=== PATIENT | male | born 1960 | race Caucasian/White ===

== ENCOUNTER 2021-05-26 13:40 | Emergency (ER) | payer MEDICAID ==
[2021-05-26] MEDS: Ondansetron 4 MG Tab.DIS PO ONE (14:30)
[2021-05-26] MEDS: Ondansetron 4 MG Tab.DIS ONE (14:31)
== END 2021-05-26 14:56 | disposition home or self-care (01) ==
LOC: LB.ED 13:40
DX: S06.0X0A Concussion without loss of consciousness, initial encounter (principal); E78.00 Pure hypercholesterolemia, unspecified; I10 Essential (primary) hypertension; Z79.899 Other long term (current) drug therapy; W01.198A Fall on same level from slipping, tripping and stumbling with subsequent striking against other object, initial encounter
CPT/HCPCS: 70450; 72125; 99282; 99283-25; Q0162